=== PATIENT | male | born 1975 | race Caucasian/White ===

== ENCOUNTER 2016-09-08 02:32 | Emergency (ER) | payer SELFPAY ==
[~2016-09-08] VITALS: Ht 175.3 cm; Wt 240.9 kg
[~2016-09-08 02:32] MED LIST: ABILIFY2 MG PO; ALBUTEROL2.5 MG/3 M IH; AMBIEN10 MG PO; AMLODIPINE BESYL5 MG PO; APRESOLINE25 MG PO; AQUAPHOR W-NAT50 GM TP; ASPIR 8181 MG PO; ASPIR-LOW81 MG PO; ASPIR-TRIN325 MG PO; ASPIRIN EC325 MG PO; ASPIRIN325 MG PO; BACTRIM,SEPT1 TABLET PO; BUSPAR; CLEOCIN150 MG PO; DULERA 100 MCG/13 GM IH; DUONEB 2.5-0.5 M3 ML AEROSOL; ENDOCET 5-3251 EACH PO; FIORICET WI1 CAPSULE PO; FLOVENT 22120 INHALA IH; HCTZ; HYDROCHLOROTHIA25 MG; HYDROXYZINE HCL25 MG PO; IBUPROFEN600 MG PO; IBUPROFEN800 MG PO; LASIX20 MG PO; LASIX40 MG PO; LEVAQUIN500 MG PO; LEVAQUIN750 MG PO; LEVOFLOXACIN500 MG PO; LEVOFLOXACIN750 MG PO; LISINOPRIL40 MG PO; LORAZEPAM0.5 MG PO; MONTELUKAST SOD10 MG PO; MOTRIN600 MG PO; NO HOME MEDS; PERCOCET 5/31 TABLET PO; PREDNISONE10 MG PO; PROPANOLOL; PROTONIX40 MG PO; PROVENTIL,2.5 MG/3 M IH; SPIRIVA1 INHALATI IH; TAMIFLU75 MG PO; TORADOL10 MG PO; VISTARIL50 M1 PO; ZYVOX600 MG PO
[2016-09-08 03:28] LABS: MCH 31.4 PG (29.0-34.0); MCHC 34.1 G/DL (30.0-36.0); MCV 92.2 FL (86-99); MEAN PLAT.VOLUME 10.7 uM^3 (9.0-12.4); PLATELET COUNT 307 K/uL (156-360); RBC DIS.WIDTH-SD 46.9 % (39-53); RED BLOOD COUNT 4.77 M/uL (4.00-5.50); WHITE BLOOD COUNT 12.2 K/uL (4.1-10.2)
[2016-09-08 03:32] LABS: CHLORIDE 105 mEq/L (99-109); POTASSIUM 3.5 mEq/L (3.7-5.4); SODIUM 143 mEq/L (136-147)
[2016-09-08 03:33] LABS: GLUCOSE 132 mg/dL (70-99)
[2016-09-08 03:35] LABS: ANION GAP 10 MEQ/L (2-14)
[2016-09-08 03:37] LABS: GFR ESTIMATE (CALCULATED) > 59 mL/min/
[2016-09-08 03:38] LABS: UREA NITROGEN (BUN) 11 mg/dL (9-23)
[2016-09-08] MEDS ORDERED: PREDNISONE50 MG PO (07:27)
[2016-09-08] MEDS ORDERED: ZITHROMAX Z-PA250 MG PO (07:27)
[2016-09-08] MEDS ORDERED: PROAIR HFA8.5 GM IH (07:27)
[2016-09-08 07:44] VITALS: BP 127/82
== END 2016-09-08 07:47 | disposition home or self-care (01) ==
LOC: EME 02:32
DX: J45.901 Unspecified asthma with (acute) exacerbation (principal); J20.9 Acute bronchitis, unspecified; J44.0 Chronic obstructive pulmonary disease with (acute) lower respiratory infection; I10 Essential (primary) hypertension; F17.200 Nicotine dependence, unspecified, uncomplicated; E66.01 Morbid (severe) obesity due to excess calories; Z68.45 Body mass index [BMI] 70 or greater, adult; Z79.82 Long term (current) use of aspirin
CPT/HCPCS: 71020; 80048; 85027; 94640; 99281; 99284; J7512

== ENCOUNTER 2016-09-25 16:53 | Emergency (ER) | payer OTHER ==
[~2016-09-25] VITALS: Ht 175.3 cm; Wt 238.3 kg
[~2016-09-25 16:53] MED LIST changes: +PREDNISONE50 MG PO; +PROAIR HFA8.5 GM IH; +ZITHROMAX Z-PA250 MG PO
[2016-09-25 17:19] LABS: MCHC 34.4 G/DL (30.0-36.0); MCV 90.2 FL (86-99); MEAN PLAT.VOLUME 10.3 uM^3 (9.0-12.4); PLATELET COUNT 407 K/uL (156-360); RBC DIS.WIDTH-CV 14.7 % (11.8-14.6); RBC DIS.WIDTH-SD 47.3 % (39-53); RED BLOOD COUNT 5.32 M/uL (4.00-5.50); WHITE BLOOD COUNT 18.1 K/uL (4.1-10.2)
[2016-09-25 17:31] LABS: CHLORIDE 104 mEq/L (99-109); POTASSIUM 3.9 mEq/L (3.7-5.4); SODIUM 141 mEq/L (136-147)
[2016-09-25 17:33] LABS: GLUCOSE 102 mg/dL (70-99)
[2016-09-25 17:34] LABS: ANION GAP 12 MEQ/L (2-14)
[2016-09-25 17:37] LABS: GFR ESTIMATE (CALCULATED) > 59 mL/min/; UREA NITROGEN (BUN) 18 mg/dL (9-23)
[2016-09-25 17:39] LABS: TROP-I INTERPRETATION NEGATIVE; TROPONIN-I < 0.01 ng/mL (0.0-0.30)
[2016-09-25 19:33] VITALS: BP 132/80
== END 2016-09-25 19:34 | disposition home or self-care (01) ==
LOC: EME 16:53
PROVIDERS: Psychiatry & Neurology Neurology
DX: R00.0 Tachycardia, unspecified (principal); E66.01 Morbid (severe) obesity due to excess calories; Z68.45 Body mass index [BMI] 70 or greater, adult; J45.909 Unspecified asthma, uncomplicated; J44.9 Chronic obstructive pulmonary disease, unspecified; I10 Essential (primary) hypertension; K21.9 Gastro-esophageal reflux disease without esophagitis; Z79.82 Long term (current) use of aspirin; F17.200 Nicotine dependence, unspecified, uncomplicated
CPT/HCPCS: 71020; 80048; 84484; 85027; 93005; 99281; 99284

== ENCOUNTER 2016-10-17 14:17 | Emergency (ER) | payer OTHER ==
[~2016-10-17] VITALS: Ht 175.3 cm; Wt 246.8 kg
[2016-10-17 15:21] LABS: HEMATOCRIT 47.6 % (38.0-50.0); MCH 29.7 PG (29.0-34.0); MCHC 32.4 G/DL (30.0-36.0); MCV 91.9 FL (86-99); MEAN PLAT.VOLUME 10.3 uM^3 (9.0-12.4); PLATELET COUNT 365 K/uL (156-360); RBC DIS.WIDTH-CV 13.7 % (11.8-14.6); RBC DIS.WIDTH-SD 46.8 % (39-53); RED BLOOD COUNT 5.18 M/uL (4.00-5.50)
[2016-10-17 15:25] LABS: WHITE BLOOD COUNT 11.1 K/uL (4.1-10.2)
[2016-10-17 15:31] LABS: CHLORIDE 106 mEq/L (99-109); POTASSIUM 3.8 mEq/L (3.7-5.4); SODIUM 140 mEq/L (136-147)
[2016-10-17 15:32] LABS: GLUCOSE 122 mg/dL (70-99)
[2016-10-17 15:34] LABS: ANION GAP 9 MEQ/L (2-14)
[2016-10-17 15:36] LABS: GFR ESTIMATE (CALCULATED) > 59 mL/min/
[2016-10-17 15:37] LABS: UREA NITROGEN (BUN) 13 mg/dL (9-23)
[2016-10-17 15:41] LABS: TROP-I INTERPRETATION NEGATIVE; TROPONIN-I < 0.01 ng/mL (0.0-0.30)
[2016-10-17 16:41] LABS: ADD MIUA? YES; BILIRUBIN NEGATIVE; BLOOD NEGATIVE; COLOR YELLOW ((YELLOW)); GLUCOSE (STRIP) NEGATIVE; KETONES NEGATIVE; LEUKOCYTES NEGATIVE; NITRITE NEGATIVE; PROTEIN (STRIP) 30; SPECIFIC GRAVITY 1.027 (1.000-1.030); UROBILINOGEN 0.2 MG/DL (0.2-1.0)
[2016-10-17 16:48] LABS: BACTERIA NONE SEEN /HPF; EPITHELIAL CELLS RARE /HPF; MUCUS 1+ /LPF; RED BLOOD CELLS 0-5 /HPF (0-5); WHITE BLOOD CELLS 0-5 /HPF (0-5)
[2016-10-17] MEDS ORDERED: MOTRIN600 MG PO (16:53)
[2016-10-17] MEDS ORDERED: CLINDAMYCIN HC150 MG PO (16:53)
[2016-10-17 17:05] VITALS: BP 158/98
== END 2016-10-17 17:08 | disposition home or self-care (01) ==
LOC: EME 14:17
PROVIDERS: Physician Assistant
DX: M54.12 Radiculopathy, cervical region (principal); K02.9 Dental caries, unspecified; R07.9 Chest pain, unspecified; J45.909 Unspecified asthma, uncomplicated; J44.9 Chronic obstructive pulmonary disease, unspecified; I10 Essential (primary) hypertension; K21.9 Gastro-esophageal reflux disease without esophagitis; E66.01 Morbid (severe) obesity due to excess calories; Z68.45 Body mass index [BMI] 70 or greater, adult; Z79.82 Long term (current) use of aspirin; F17.200 Nicotine dependence, unspecified, uncomplicated
CPT/HCPCS: 71020; 80048; 81003; 84484; 85027; 93005; 99281; 99284

== ENCOUNTER 2016-11-30 00:15 | Emergency (ER) | payer OTHER ==
[~2016-11-30] VITALS: Ht 175.3 cm; Wt 244.3 kg
[~2016-11-30 00:15] MED LIST changes: +CLINDAMYCIN HC150 MG PO
[2016-11-30 01:42] LABS: HEMATOCRIT 46.1 % (38.0-50.0); MCH 29.7 PG (29.0-34.0); MCHC 32.8 G/DL (30.0-36.0); MCV 90.7 FL (86-99); MEAN PLAT.VOLUME 10.2 uM^3 (9.0-12.4); PLATELET COUNT 328 K/uL (156-360); RBC DIS.WIDTH-CV 13.7 % (11.8-14.6); RBC DIS.WIDTH-SD 46.1 % (39-53); RED BLOOD COUNT 5.08 M/uL (4.00-5.50); WHITE BLOOD COUNT 11.4 K/uL (4.1-10.2)
[2016-11-30 01:49] LABS: CHLORIDE 105 mEq/L (99-109); POTASSIUM 3.6 mEq/L (3.7-5.4); SODIUM 142 mEq/L (136-147)
[2016-11-30 01:51] LABS: GLUCOSE 126 mg/dL (70-99)
[2016-11-30 01:53] LABS: ANION GAP 9 MEQ/L (2-14)
[2016-11-30 01:55] LABS: GFR ESTIMATE (CALCULATED) > 59 mL/min/
[2016-11-30 01:56] LABS: UREA NITROGEN (BUN) 15 mg/dL (9-23)
[2016-11-30] MEDS ORDERED: KEFLEX500 MG PO (02:34)
[2016-11-30 02:54] VITALS: BP 149/99
== END 2016-11-30 03:16 | disposition home or self-care (01) ==
LOC: EXP 00:15 → EME 00:15 → EXP 03:16
PROVIDERS: Physician Assistant
DX: L03.115 Cellulitis of right lower limb (principal); J45.909 Unspecified asthma, uncomplicated; J44.9 Chronic obstructive pulmonary disease, unspecified; I10 Essential (primary) hypertension; K21.9 Gastro-esophageal reflux disease without esophagitis; E66.01 Morbid (severe) obesity due to excess calories; Z68.45 Body mass index [BMI] 70 or greater, adult; F17.200 Nicotine dependence, unspecified, uncomplicated; Z79.82 Long term (current) use of aspirin
CPT/HCPCS: 80048; 81003; 85027; 93971; 99281; 99283

== ENCOUNTER 2017-01-20 19:25 | Emergency (ER) | payer OTHER ==
[~2017-01-20] VITALS: Ht 175.3 cm; Wt 250.8 kg
[~2017-01-20 19:25] MED LIST changes: +KEFLEX500 MG PO
[2017-01-20 19:57] LABS: POINT-OF-CARE METER ID UU13113778
[2017-01-20 20:27] LABS: MCH 30.1 PG (29.0-34.0); MCHC 33.1 G/DL (30.0-36.0); MCV 90.9 FL (86-99); MEAN PLAT.VOLUME 10.5 uM^3 (9.0-12.4); PLATELET COUNT 305 K/uL (156-360); RBC DIS.WIDTH-CV 14.6 % (11.8-14.6); RBC DIS.WIDTH-SD 48.7 % (39-53); RED BLOOD COUNT 4.95 M/uL (4.00-5.50); WHITE BLOOD COUNT 11.7 K/uL (4.1-10.2)
[2017-01-20 20:36] LABS: CHLORIDE 106 mEq/L (99-109); POTASSIUM 3.7 mEq/L (3.7-5.4); SODIUM 141 mEq/L (136-147)
[2017-01-20 20:38] LABS: GLUCOSE 117 mg/dL (70-99)
[2017-01-20 20:40] LABS: ANION GAP 9 MEQ/L (2-14)
[2017-01-20 20:42] LABS: GFR ESTIMATE (CALCULATED) > 59 mL/min/
[2017-01-20 20:43] LABS: UREA NITROGEN (BUN) 15 mg/dL (9-23)
[2017-01-20 21:13] LABS: ADD MIUA? NO; BILIRUBIN NEGATIVE; BLOOD NEGATIVE; COLOR YELLOW ((YELLOW)); GLUCOSE (STRIP) NEGATIVE; KETONES NEGATIVE; LEUKOCYTES NEGATIVE; NITRITE NEGATIVE; PROTEIN (STRIP) NEGATIVE; SPECIFIC GRAVITY 1.024 (1.000-1.030); UCUL ADDED? NO; UROBILINOGEN 0.2 MG/DL (0.2-1.0)
[2017-01-20 22:42] LABS: TROP-I INTERPRETATION NEGATIVE; TROPONIN-I 0.03 ng/mL (0.0-0.30)
[2017-01-20 23:00] VITALS: BP 148/85
== END 2017-01-20 23:42 | disposition left against medical advice (07) ==
LOC: EME 19:25
PROVIDERS: Emergency Medicine
DX: R55 Syncope and collapse (principal); R06.00 Dyspnea, unspecified; F32.9 Major depressive disorder, single episode, unspecified; I10 Essential (primary) hypertension; K21.9 Gastro-esophageal reflux disease without esophagitis; F17.200 Nicotine dependence, unspecified, uncomplicated; E66.9 Obesity, unspecified; Z88.0 Allergy status to penicillin; Z88.6 Allergy status to analgesic agent
CPT/HCPCS: 71010; 80048; 81003; 82948; 84484; 85027; 93005; 99281; 99285

== ENCOUNTER 2017-04-23 17:54 | Emergency (ER) | payer OTHER ==
[~2017-04-23] VITALS: Ht 172.7 cm; Wt 255.8 kg
[2017-04-23 18:50] LABS: HEMATOCRIT 45.3 % (38.0-50.0); MCH 31.1 PG (29.0-34.0); MCHC 34.4 G/DL (30.0-36.0); MCV 90.4 FL (86-99); MEAN PLAT.VOLUME 10.3 uM^3 (9.0-12.4); PLATELET COUNT 279 K/uL (156-360); RBC DIS.WIDTH-CV 14.3 % (11.8-14.6); RED BLOOD COUNT 5.01 M/uL (4.00-5.50); WHITE BLOOD COUNT 12.6 K/uL (4.1-10.2)
[2017-04-23 19:02] LABS: CHLORIDE 105 mEq/L (99-109); POTASSIUM 3.6 mEq/L (3.7-5.4); SODIUM 137 mEq/L (136-147)
[2017-04-23 19:03] LABS: GLUCOSE 101 mg/dL (70-99)
[2017-04-23 19:05] LABS: ANION GAP 9 MEQ/L (2-14)
[2017-04-23 19:07] LABS: GFR ESTIMATE (CALCULATED) > 59 mL/min/
[2017-04-23 19:08] LABS: UREA NITROGEN (BUN) 9 mg/dL (9-23)
[2017-04-23 19:14] LABS: TROP-I INTERPRETATION NEGATIVE; TROPONIN-I < 0.01 ng/mL (0.0-0.30)
[2017-04-23] MEDS ORDERED: ZITHROMAX Z-PA250 MG PO (19:46)
[2017-04-23 20:15] VITALS: BP 155/100
== END 2017-04-23 20:17 | disposition left against medical advice (07) ==
LOC: EME 17:54
PROVIDERS: Emergency Medicine
DX: R07.9 Chest pain, unspecified (principal); Z53.20 Procedure and treatment not carried out because of patient's decision for unspecified reasons; J44.9 Chronic obstructive pulmonary disease, unspecified; I10 Essential (primary) hypertension; K21.9 Gastro-esophageal reflux disease without esophagitis; D64.9 Anemia, unspecified; Z79.82 Long term (current) use of aspirin; F17.200 Nicotine dependence, unspecified, uncomplicated
CPT/HCPCS: 71020; 80048; 83880; 84484; 85027; 85379; 93005; 99281; 99284

== ENCOUNTER 2017-05-04 04:19 | Inpatient (IN) | payer OTHER ==
[~2017-05-04] VITALS: Ht 175.3 cm; Wt 217.0 kg
[~2017-05-04 04:19] MED LIST changes: +AMLODIPINE BESY10 MG PO
[2017-05-04 05:26] LABS: CHLORIDE 102 mEq/L (99-109); POTASSIUM 3.3 mEq/L (3.7-5.4); SODIUM 140 mEq/L (136-147)
[2017-05-04 05:27] LABS: GLUCOSE 154 mg/dL (70-99)
[2017-05-04 05:29] LABS: ANION GAP 14 MEQ/L (2-14)
[2017-05-04 05:31] LABS: GFR ESTIMATE (CALCULATED) > 59 mL/min/
[2017-05-04 05:32] LABS: UREA NITROGEN (BUN) 9 mg/dL (9-23)
[2017-05-04 05:40] LABS: TROP-I INTERPRETATION NEGATIVE; TROPONIN-I 0.01 ng/mL (0.0-0.30)
[2017-05-04 05:55] LABS: HEMATOCRIT 46.2 % (38.0-50.0); MCHC 33.1 G/DL (30.0-36.0); MCV 90.6 FL (86-99); PLATELET COUNT 306 K/uL (156-360); RBC DIS.WIDTH-CV 14.6 % (11.8-14.6); RBC DIS.WIDTH-SD 48.5 % (39-53); WHITE BLOOD COUNT 14.7 K/uL (4.1-10.2)
[2017-05-04 07:09] LABS: PROTHROMBIN TIME 11.3 SEC (10.2-12.9)
[2017-05-04 07:12] LABS: PTT 30.9 SEC (25-37)
[2017-05-04] MEDS ORDERED: LORATADINE10 M2 PO (09:02)
[2017-05-04] MEDS ORDERED: ANTIVERT25 MG PO (09:03)
[2017-05-04] MEDS ORDERED: BUSPAR15 MG PO (09:03)
[2017-05-04] MEDS ORDERED: DULERA 200 MCG/13 GM IH (09:03)
[2017-05-04] MEDS ORDERED: ATORVASTATIN CA10 MG PO (09:03)
[2017-05-04] MEDS ORDERED: FLONASE16 G1 BOTH NARES (09:04)
[2017-05-04 09:54] VITALS: BP 190/80
[2017-05-04 12:45] LABS: TROP-I INTERPRETATION NEGATIVE; TROPONIN-I 0.02 ng/mL (0.0-0.30)
[2017-05-04 18:12] LABS: TROP-I INTERPRETATION NEGATIVE; TROPONIN-I 0.03 ng/mL (0.0-0.30)
[2017-05-04 18:49] LABS: ADD MIUA? YES; BILIRUBIN NEGATIVE; BLOOD NEGATIVE; COLOR YELLOW ((YELLOW)); GLUCOSE (STRIP) NEGATIVE; KETONES NEGATIVE; LEUKOCYTES TRACE; NITRITE NEGATIVE; PROTEIN (STRIP) NEGATIVE; SPECIFIC GRAVITY 1.028 (1.000-1.030); UROBILINOGEN 0.2 MG/DL (0.2-1.0)
[2017-05-04 19:19] LABS: BACTERIA RARE /HPF; EPITHELIAL CELLS RARE /HPF; MUCUS 4+ /LPF; RED BLOOD CELLS 0-5 /HPF (0-5); WHITE BLOOD CELLS 0-5 /HPF (0-5)
[2017-05-04 20:28] VITALS: BP 158/74
[2017-05-05 00:22] VITALS: BP 145/75
[2017-05-05 06:59] LABS: HEMATOCRIT 41.4 % (38.0-50.0); MCH 31.4 PG (29.0-34.0); MCHC 33.6 G/DL (30.0-36.0); MCV 93.5 FL (86-99); MEAN PLAT.VOLUME 10.9 uM^3 (9.0-12.4); PLATELET COUNT 251 K/uL (156-360); RBC DIS.WIDTH-CV 14.9 % (11.8-14.6); RBC DIS.WIDTH-SD 51.6 % (39-53); RED BLOOD COUNT 4.43 M/uL (4.00-5.50); WHITE BLOOD COUNT 10.1 K/uL (4.1-10.2)
[2017-05-05 07:22] LABS: ANION GAP 8 MEQ/L (2-14); CHLORIDE 105 MEQ/L (99-109); GFR ESTIMATE (CALCULATED) > 59 mL/min/; GLUCOSE 119 mg/dL (70-99); POTASSIUM 3.7 MEQ/L (3.7-5.4); SAMPLE HEMOLYSIS CHECK 0; SAMPLE ICTERIC CHECK 0; SAMPLE LIPEMIA CHECK 0; SODIUM 142 MEQ/L (136-147); UREA NITROGEN (BUN) 13 mg/dL (9-23)
[2017-05-05 08:00] VITALS: BP 142/67
[2017-05-05] MEDS ORDERED: LEVAQUIN750 MG PO (09:08)
[2017-05-05 15:56] VITALS: BP 145/86
[2017-05-05 22:54] VITALS: BP 148/65
[2017-05-06 07:37] VITALS: BP 190/88
[2017-05-06 15:32] VITALS: BP 148/67
[2017-05-06 19:41] LABS: INFLUENZA A VIRAL ANTIGEN NEGATIVE; INFLUENZA B VIRAL ANTIGEN NEGATIVE
[2017-05-06 23:35] VITALS: BP 154/86
[2017-05-07 07:02] LABS: EOSINOPHIL (%) 0 % (0-5); HEMATOCRIT 41.2 % (38.0-50.0); IMMATURE GRANULOCYTE (%) 1.2 % (0.0-0.7); IMMATURE GRANULOCYTE COUNT 0.2 K/uL; INSTRUMENT ABS NEUTROPHIL CT 10.7 K/uL; LYMPHOCYTE COUNT 1.3 K/uL (1.0-2.8); MCH 31.3 PG (29.0-34.0); MCHC 33.7 G/DL (30.0-36.0); MCV 92.8 FL (86-99); MEAN PLAT.VOLUME 11.2 uM^3 (9.0-12.4); MONOCYTE (%) 2.9 % (3-12); MONOCYTE COUNT 0.4 K/uL (0-0.8); NEUTROPHIL (%) 85.6 % (45-76); NEUTROPHIL COUNT 10.7 K/uL (1.8-6.4); PLATELET COUNT 273 K/uL (156-360); RBC DIS.WIDTH-CV 14.6 % (11.8-14.6); RBC DIS.WIDTH-SD 50.1 % (39-53); RED BLOOD COUNT 4.44 M/uL (4.00-5.50); WHITE BLOOD COUNT 12.4 K/uL (4.1-10.2)
[2017-05-07 07:29] LABS: ALKALINE PHOSPHATASE 114 IU/L (3-129); ANION GAP 9 MEQ/L (2-14); CHLORIDE 104 MEQ/L (99-109); GFR ESTIMATE (CALCULATED) > 59 mL/min/; POTASSIUM 4.4 MEQ/L (3.7-5.4); SAMPLE HEMOLYSIS CHECK 0; SAMPLE ICTERIC CHECK 0; SAMPLE LIPEMIA CHECK 0; SODIUM 141 MEQ/L (136-147); TOTAL BILIRUBIN 0.5 MG/DL (0.0-1.0); UREA NITROGEN (BUN) 14 mg/dL (9-23)
[2017-05-07 07:30] LABS: GLUCOSE 208 mg/dL (70-99)
[2017-05-07 07:51] VITALS: BP 138/73
[2017-05-07 08:55] LABS: BASE EXCESS 3.7 mEq/L (-3 to +3); BICARBONATE 29.2 mEq/L (22-26); CARBOXY HGB 2.4 % (0-5); METHEMOGLOBIN 1.3 % (0-1.5); PO2 62 mm Hg (80-100); pH 7.41 (7.35-7.45)
[2017-05-07 08:56] LABS: COMMENTS - BLOOD GASES NEG A+C+; DEVICE NC; O2 FLOW 4 L/MIN; PCO2 46 mm Hg (35-45); SITE LR; TOTAL RESP RATE 15 resp/min
[2017-05-07 23:48] VITALS: BP 143/83
[2017-05-08 05:45] LABS: EOSINOPHIL (%) 0 % (0-5); HEMATOCRIT 41.5 % (38.0-50.0); IMMATURE GRANULOCYTE (%) 1.5 % (0.0-0.7); IMMATURE GRANULOCYTE COUNT 0.2 K/uL; LYMPHOCYTE COUNT 1.6 K/uL (1.0-2.8); MCH 31.4 PG (29.0-34.0); MCHC 33.5 G/DL (30.0-36.0); MCV 93.7 FL (86-99); MEAN PLAT.VOLUME 10.6 uM^3 (9.0-12.4); MONOCYTE (%) 4.8 % (3-12); MONOCYTE COUNT 0.7 K/uL (0-0.8); NEUTROPHIL (%) 83.3 % (45-76); PLATELET COUNT 293 K/uL (156-360); RBC DIS.WIDTH-CV 14.8 % (11.8-14.6); RED BLOOD COUNT 4.43 M/uL (4.00-5.50); WHITE BLOOD COUNT 15.6 K/uL (4.1-10.2)
[2017-05-08 06:09] LABS: ANION GAP 9 MEQ/L (2-14); CHLORIDE 103 MEQ/L (99-109); GFR ESTIMATE (CALCULATED) > 59 mL/min/; GLUCOSE 264 mg/dL (70-99); POTASSIUM 4.3 MEQ/L (3.7-5.4); SAMPLE HEMOLYSIS CHECK 0; SAMPLE ICTERIC CHECK 0; SAMPLE LIPEMIA CHECK 0; SODIUM 142 MEQ/L (136-147); UREA NITROGEN (BUN) 18 mg/dL (9-23)
[2017-05-08 07:33] VITALS: BP 168/74
[2017-05-08 15:10] VITALS: BP 187/80
[2017-05-09 00:09] VITALS: BP 171/75
[2017-05-09 07:17] LABS: EOSINOPHIL (%) 0 % (0-5); HEMATOCRIT 41.9 % (38.0-50.0); IMMATURE GRANULOCYTE (%) 2.5 % (0.0-0.7); IMMATURE GRANULOCYTE COUNT 0.4 K/uL; INSTRUMENT ABS NEUTROPHIL CT 11.8 K/uL; LYMPHOCYTE COUNT 2.5 K/uL (1.0-2.8); MCH 31.1 PG (29.0-34.0); MCHC 33.2 G/DL (30.0-36.0); MCV 93.7 FL (86-99); MONOCYTE (%) 6.9 % (3-12); MONOCYTE COUNT 1.1 K/uL (0-0.8); NEUTROPHIL (%) 74.7 % (45-76); NEUTROPHIL COUNT 11.8 K/uL (1.8-6.4); PLATELET COUNT 282 K/uL (156-360); RBC DIS.WIDTH-CV 14.9 % (11.8-14.6); RBC DIS.WIDTH-SD 51.7 % (39-53); RED BLOOD COUNT 4.47 M/uL (4.00-5.50); WHITE BLOOD COUNT 15.8 K/uL (4.1-10.2)
[2017-05-09 07:29] VITALS: BP 167/86
[2017-05-09 07:39] LABS: ANION GAP 7 MEQ/L (2-14); CHLORIDE 104 MEQ/L (99-109); GFR ESTIMATE (CALCULATED) > 59 mL/min/; GLUCOSE 208 mg/dL (70-99); POTASSIUM 4.3 MEQ/L (3.7-5.4); SAMPLE HEMOLYSIS CHECK 0; SAMPLE ICTERIC CHECK 0; SAMPLE LIPEMIA CHECK 0; SODIUM 144 MEQ/L (136-147); UREA NITROGEN (BUN) 19 mg/dL (9-23)
[2017-05-09] MEDS ORDERED: LEVOFLOXACIN750 MG PO (12:03)
[2017-05-09] MEDS ORDERED: NICOTINE PATCH1 EAC2 TD (12:03)
[2017-05-09] MEDS ORDERED: HYGROTON25 MG PO (12:04)
[2017-05-09] MEDS ORDERED: MEDROL DOSEPAK4 MG PO (12:06)
== END 2017-05-09 13:39 | disposition home or self-care (01) | DRG 190 ==
LOC: EME 04:19 → 5SOUTH 07:36 → EDOF 07:36 → ENRESERV 07:40 → 5SOUTH 09:15
PROVIDERS: Hospitalist; Internal Medicine; Internal Medicine Pulmonary Disease
PROC: 5A09357 Assistance with Respiratory Ventilation, Less than 24 Consecutive Hours, Continuous Positive Airway Pressure (ICD-10-PCS; principal; 2017-05-04)
DX: J44.0 Chronic obstructive pulmonary disease with (acute) lower respiratory infection (principal); J96.01 Acute respiratory failure with hypoxia; J98.11 Atelectasis; E66.2 Morbid (severe) obesity with alveolar hypoventilation; Z68.45 Body mass index [BMI] 70 or greater, adult; J44.1 Chronic obstructive pulmonary disease with (acute) exacerbation; F17.210 Nicotine dependence, cigarettes, uncomplicated; F12.90 Cannabis use, unspecified, uncomplicated; Z23 Encounter for immunization; J20.9 Acute bronchitis, unspecified; K21.9 Gastro-esophageal reflux disease without esophagitis; F90.9 Attention-deficit hyperactivity disorder, unspecified type; F31.9 Bipolar disorder, unspecified; F43.10 Post-traumatic stress disorder, unspecified; I10 Essential (primary) hypertension; I45.19 Other right bundle-branch block; R79.1 Abnormal coagulation profile; T38.0X5A Adverse effect of glucocorticoids and synthetic analogues, initial encounter; Z80.1 Family history of malignant neoplasm of trachea, bronchus and lung; Z83.3 Family history of diabetes mellitus; Z91.19 Patient's noncompliance with other medical treatment and regimen
CPT/HCPCS: 36600; 71020; 78582; 80048; 80053; 81003; 82803; 83605; 84484; 85025; 85027; 85379; 85610; 85730; 87040; 87070; 87205; 87502; 90686; 93005; 93306; 94010; 94640; 94640 76; 94660; 94667; 94668; 94760; 94799; 99202; 99281; 99285; A9540; A9567; J1650; J1956; J2930; J7030; J7509